=== PATIENT | female | born 1990 ===

== ENCOUNTER 2016-12-07 20:09 | Emergency (ER) | payer OTHER ==
[2016-12-07 20:55] VITALS: BP 125/72; PULSE 99; TEMP 98.3; O2SAT 100
--- NOTE | 2016-12-07 21:41 | C.PDOC ---
History Of Present Illness The patient, a 26 y/o female whose PMHx includes chronic migraines, presents to the ED for evaluation of migraine which began around 2 days ago. Patient states she had been taking migraine medication but recently ran out and is now requesting pain medication in the ED. Patient also reports a small growth to her right pinky finger which has been present for a few months. Otherwise, patient denies vision change, dizziness, nausea, vomiting, or recent trauma/ injury. Time Seen by Provider: 12/07/16 21:02 Chief Complaint (Nursing): Headache History Per: Patient History/Exam Limitations: no limitations Onset/Duration Of Symptoms: Days Current Symptoms Are (Timing): Still Present Location Of Injury: Right: Hand (pinky finger ) Additional History Per: Patient Past Medical History Reviewed: Historical Data, Nursing Documentation, Vital Signs Vital Signs: Last Vital Signs Temp 98.3 F 12/07/16 20:53 Pulse 99 H 12/07/16 20:53 Resp 20 12/07/16 22:08 BP 125/72 12/07/16 20:53 Pulse Ox 100 12/08/16 04:14 - Medical History PMH: Migraine (x 18 years) Surgical History: No Surg Hx Family History: States: Unknown Family Hx - Social History Hx Alcohol Use: No Hx Substance Use: No - Immunization History Hx Influenza Vaccination: No Hx Pneumococcal Vaccination: No Review Of Systems Except As Marked, All Systems Reviewed And Found Negative. Eyes: Negative for: Vision Change Gastrointestinal: Negative for: Nausea, Vomiting Skin: Positive for: Other (+small growth on right pinky finger ) Neurological: Positive for: Headache (migraine ). Negative for: Dizziness Physical Exam - Physical Exam Appears: Non-toxic, No Acute Distress Skin: Normal Color, Warm, Dry Head: Atraumatic, Normacephalic Eye(s): bilateral: Normal Inspection, PERRL, EOMI Oral Mucosa: Moist Neck: Normal ROM, Supple Chest: Symmetrical, No Deformity, No Tenderness Cardiovascular: Rhythm Regular, No Murmur Respiratory: Normal Breath Sounds, No Rales, No Rhonchi, No Wheezing Back: Normal Inspection Extremity: Normal ROM, Capillary Refill (less than 2 seconds ), No Swelling, Other (Right Upper Extremity: small callus skin on the DIP joint of right 5th finger. no erythema or fluctuance ) Neurological/Psych: Oriented x3, Normal Speech, Normal Cognition, Other (no focal deficits ) Gait: Steady ED Course And Treatment O2 Sat by Pulse Oximetry: 100 (on RA) Pulse Ox Interpretation: Normal Progress Note: Patient received Motrin PO. On reassessment, patient is resting comfortably, showing no signs of distress and is stable for discharge. Patient is unsure of her migraine meds [place]. Pt advised to follow up in clinic within a timely manner for further evaluation. Reassessment Condition: Improved Disposition Counseled Patient/Family Regarding: Diagnosis, Need For Followup, Rx Given - Disposition Referrals: [facility] [Outside] Disposition: HOME/ ROUTINE Disposition Time: 21:40 Condition: STABLE Additional Instructions: Please follow up with PMD Return to ER if worse Prescriptions: Acetaminophen/Butalbital/Caf [Fioricet] 1 tab PO QID #20 tab Ibuprofen [Motrin] 600 mg PO Q6H #30 tab Instructions: Acute Headache (ED) Print Language: TELUGU - Clinical Impression Clinical Impression: Headache, Migraine - PA / [employer] ADMINISTRATOR / Resident Statement MD/DO has reviewed & agrees with the documentation as recorded. - Scribe Statement The provider has reviewed the documentation as recorded by the Scribe (Heaven Kiser) All medical record entries made by the Scribe were at my direction and personally dictated by me. I have reviewed the chart and agree that the record accurately reflects my personal performance of the history, physical exam, medical decision making, and the department course for this patient. I have also personally directed, reviewed, and agree with the discharge instructions and disposition.
[2016-12-07 22:08] VITALS: RESP 20
== END 2016-12-07 22:07 | disposition home or self-care (01) ==
LOC: C.ER 20:09
DX: G43.909 Migraine, unspecified, not intractable, without status migrainosus (principal)